=== PATIENT | female | born 1990 | race Caucasian/White ===

== ENCOUNTER 2020-02-21 16:40 | Emergency (ER) | payer BC, OTHER, SELFPAY ==
[~2020-02-21] VITALS: Ht 170.2 cm; Wt 55.2 kg
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
[2020-02-21] MEDS ORDERED: methylPREDNISolone SOD SUCC 125 MG/2 ML ONE (17:14)
[2020-02-21] MEDS ORDERED: FAMOTIDINE 20 MG/2 ML ONE (17:15)
[2020-02-21] MEDS ORDERED: DIPHENHYDRAMINE 50 MG/ML, 1ML ONE (17:15)
[2020-02-21] MEDS ORDERED: EPINEPHRINE 1 MG/ML, 1ML ONE (17:15)
[2020-02-21 17:28] LABS: BASOPHILS % (AUTO) 0 % (0-1); EOSINOPHILS % (AUTO) 0 % (1-7); LYMPHOCYTES % (AUTO) 26 % (22-44); MEAN CORPUSCULAR HEMOGLOBIN 31.7 pg (27.0-34.8); MEAN CORPUSCULAR HGB CONC 34.7 g/dL (32.4-35.8); MEAN PLATELET VOLUME 7.6 fL (7.4-10.4); MONOCYTES % (AUTO) 8 % (2-9); NEUTROPHILS % (AUTO) 66 % (42-75); PLATELET COUNT 343 x10^3/uL (130-400); RED BLOOD COUNT 3.99 x10^6/uL (3.82-5.3); RED CELL DISTRIBUTION WIDTH 13.1 % (9.6-15.2)
[2020-02-21 17:29] LABS: MD NO
--- NOTE | 2020-02-21 17:38 | NUR ---
PT SLIGHTLY SHAKY AT TIMES, MILD HIVES TO BILAT ARMS. MEDICATED PER ORDERS. RV'WD POC WITH PT. SIGNIFICANT OTHER AT BS.
[2020-02-21 17:40] LABS: ALBUMIN 3.9 g/dL (3.4-5.0); ANION GAP 5 mmol/L (5-15); CALCIUM 8.4 mg/dL (8.5-10.1); CHLORIDE 110 mmol/L (98-107); CREATININE 0.93 mg/dL (0.55-1.02)
[2020-02-21] MEDS ORDERED: FAMOTIDINE 20 MG/2 ML IVPush ONE (18:00)
[2020-02-21] MEDS ORDERED: methylPREDNISolone SOD SUCC 125 MG/2 ML IVPush ONE (18:00)
[2020-02-21] MEDS ORDERED: EPINEPHRINE 1 MG/ML, 1ML SQ ONE (18:00)
[2020-02-21] MEDS ORDERED: DIPHENHYDRAMINE 50 MG/ML, 1ML IVPush ONE (18:00)
--- NOTE | 2020-02-21 18:01 | NUR ---
PT STATES SHE FEELS BETTER, STATES SHAKING IS GONE. STATES SHE FEELS READY TO GO HOME.
--- NOTE | 2020-02-21 18:15 | NUR ---
ERP AT FOR RECHECK.
[2020-02-21 18:33] VITALS: BP 104/63
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
== END 2020-02-21 18:39 | disposition home or self-care (01) ==
LOC: ED 18:04
DX: T78.2XXA Anaphylactic shock, unspecified, initial encounter (principal); R21 Rash and other nonspecific skin eruption; X58.XXXA Exposure to other specified factors, initial encounter; Y93.89 Activity, other specified; Y92.89 Other specified places as the place of occurrence of the external cause; Y99.8 Other external cause status
CPT/HCPCS: 36415; 80048; 82040; 84703; 85025; 90471; 96372; 96374; 96375; 99291; J0171; J1200; J2930